=== PATIENT | female | born 1980 | race Caucasian/White ===

== ENCOUNTER 2022-11-30 13:09 | Emergency (ER) | payer OTHER, SELFPAY ==
[2022-11-30 13:15] VITALS: BP 143/96; PULSE 93; RESP 16; TEMP 36.8; O2SAT 99
--- NOTE | 2022-11-30 13:49 | ED.URI ---
HPI - URI/Sore Throat General Chief Complaint: Upper Respiratory Infection Stated Complaint: sore throat Time Seen by Provider: 11/30/22 13:50 Source: patient, RN notes reviewed and old records reviewed Mode of arrival: ambulatory Limitations: no limitations History of Present Illness HPI Narrative: 42 year old female who presents to express care with complaints of sore throat, some nasal congestion and drainage with no known fevers. Patient reports that on Saturday she had scratchy feeling throat,thought initially was reaction to being around cat. 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 Patient reports that since morning her throat has been increasingly sore with painful swallowing.Patient reports no nausea or vomiting or any cough or shortness of breath. Patient reports that she has been taking Tylenol and Ibuprofen for her discomfort. MD elicited complaint: cough and sore throat Pertinent past history: seasonal allergies Onset (ago): day(s) (2) Consistency: constant Pain scale (0-10): 10 Exacerbating factors: swallowing Treatments prior to arrival: acetaminophen and ibuprofen Related Data Allergies Allergy/AdvReac Type Severity Reaction Status Date / Time Cat Dander Allergy Unknown sneezing Uncoded 02/27/18 10:45 Review of Systems Review of Systems: CONSTITUTIONAL: Denies malaise, chills, sweats, or fever. EYES: Denies visual changes, redness, or discharge. ENT: Reports rhinorrhea, congestion, sinus pain, no otalgia positive sore throat. CARDIOVASCULAR: Denies chest pain, palpitations, or edema. RESPIRATORY: Reports no cough.? Denies dyspnea. GASTROINTESTINAL: Denies abdominal pain, nausea, vomiting, diarrhea SKIN: Denies rash or itching. MUSCULOSKELETAL: Denies myalgia. NEUROLOGIC: Denies headache. All systems reviewed & are unremarkable except as noted in HPI and below PMFSH Past Medical History Medical History (Updated 12/02/22 @ 13:06 by Digna Casiano NP) ADD (attention deficit disorder) Asthma as child Eczema Environmental allergies Surgical History Surgical History (Updated 12/02/22 @ 13:05 by Digna Casiano NP) History of cholecystectomy History of placement of ear tubes Previous section x2 Social History Social History (Updated 12/02/22 @ 13:07 by Digna Casiano NP) Smoking status: Never smoker Living arrangements: with family Gender identity (if verbalized by the patient): Female Comments At time of signature, agree with nursing past medical, surgical, social and family history. There is no relevant family history pertinent to the presenting complaint Exam Narrative: GENERAL: Well-appearing, well-nourished, and in no acute distress. HEAD: Normocephalic EYES: PERRLA, conjunctivae clear ENT: Nares clear, turbinates edematous and erythematous, clear discharge. Mucous membranes moist. TM pearly tate with dull light reflex bilaterally; no tragal tenderness. Oropharynx erythematous without lesions. Tonsils red with minimal enlargement and without exudate, no drooling, no hoarseness, no trismus, uvula midline.post nasal drainage NECK: Supple. No lymphadenopathy CHEST: Clear to auscultation, breath sounds equal. No wheezing, rhonchi, rales, or stridor. No respiratory distress, speaks in full sentences.SAO2 99% on room air HEART: Regular rate and rhythm. No murmur heard. SKIN: Warm, dry, no rash. NEURO: Alert and oriented x3. PSYCH: Normal mood and affect Course Course Emergency Course: Patient is aware of diagnosis, understands and agrees to treatment plan.? Anticipatory guidance given.? Patient agrees to follow-up as directed and is aware of reasons to seek care at the emergency department. Portions of this record may have been created with voice recognition software Level of Care: Express Care Visit Vital Signs Vital signs: Vital Signs Temperature 36.8 C 11/30/22 13:15 Pulse Rate 93 04/
== END 2022-11-30 14:10 | disposition home or self-care (01) ==
PROVIDERS: Emergency Provider Registered Nurse
DX: J02.9 Acute pharyngitis, unspecified (principal)
CPT/HCPCS: 87081; 87880; 99213; G0463